=== PATIENT | female | born 1930 | race Caucasian/White ===

== ENCOUNTER 2016-06-13 21:34 | Emergency (ER) | payer MEDICARE, MEDICAID ==
[2016-06-13 21:35] VITALS: BMI 27.4
[2016-06-13 21:56] VITALS: TEMP 98.3
--- NOTE | 2016-06-13 22:09 | EDPRACDOC ---
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 PT STATES THAT HER RIGHT HAND HURT AT FIRST BUT DOES NOT HURT NOW. PT DENIES ANY LOC, NO NECK OR BACK PAIN. Pain Severity: Reports: Mild Injuries/Pain Location: Reports: head, lower extremity Reason for Fall: Reports: lost balance Loss of Consciousness: no loss of consciousness Modifying Factors: improves with: movement Associated Symptoms (Fall): Reports: headache. Denies: abdominal pain, chest pain, confusion, dizziness, lightheadedness, muscle spasms, nausea/vomiting, neck pain, ringing in ears, seizures, shortness of breath, slurred speech, trouble walking, vision changes Allergies/Adverse Reactions: Allergies levofloxacin [From Levaquin] Allergy (Verified 06/13/16 21:56) Unknown Listed on doctor's record (ALYSON Larios) Home Medications: Ambulatory Orders Bisoprolol Fumarate [Zebeta] 2.5 mg PO DAILY 12/31/14 Diclofenac Sodium [Voltaren 1% Topical Gel] 4 gm TOP Q6 PRN 12/31/14 Ergocalciferol (Vitamin D2) [Vitamin D2 (ergocalciferol)] 50,000 units PO SA Fluticasone Propionate [Flonase] 2 spray JESSENIA DAILY 12/31/14 Furosemide [Lasix] 20 mg PO BID 12/31/14 Omeprazole [Prilosec] 20 mg PO DAILY 12/31/14 Phenobarbital [Luminal] 32.4 mg PO BID 12/31/14 Duloxetine [Cymbalta] 60 mg PO HS 04/05/15 Lactobacillus Rhamnosus GG [[facility] [employer]] 1 each PO DAILY Meloxicam 7.5 mg PO BID 08/22/15 Pramipexole [Mirapex] 0.5 mg PO HS 08/22/15 Magnesium Hydroxide [Milk of Magnesia] 30 ml PO BID PRN 09/26/15 Oxycodone (OxyCONTIN) Ext Rel [Oxycontin] 10 mg PO QHS 09/26/15 Sennosides/Docusate Sodium [Senna-S Tablet] 2 tab PO QHS 09/26/15 Aspirin (Enteric Coated) [Halfprin] 81 mg PO DAILY #90 tab 10/02/15 Calcium Carbonate + Vitamin D [Oscal with Vitamin D] 500 mg PO BID #120 tab Acetaminophen [Mapap] 650 mg PO Q6H PRN 04/10/16 CYANOCOBALAMIN (Vitamin B-12) [Vitamin B-12] 1,000 mcg IM .MONTHLY 04/10/16 Hydrocodone Bit/Acetaminophen [[place] 5-325 Tablet] 1 tab PO BID PRN 04/10/16 Losartan Potassium 50 mg PO DAILY 04/10/16 Phenytoin Sodium Extended [Dilantin] 100 mg PO QHS 04/10/16 Phenytoin Sodium [Dilantin] 50 mg PO BID 04/10/16 Tizanidine [Zanaflex] 2 mg PO BID PRN 04/10/16 Denosumab [Prolia] 60 mg SQ .[id number] 06/12/16 ED Past Medical History - History Reviewed Yes Nurses notes reviewed and agree except as marked - Patient Medical History Neurological History: Reports: Seizures (Well controlled on Dilantin and phenobarb.), Dementia Cardiac History: Reports: Hypertension, Hypercholesterolemia GI/ History: Reports: Urinary Tract Infection, Ulcer (Apparently had bleeding ulcer 3 years ago.) Musculoskeletal History: Reports: Arthritis (OA), Osteoarthritis Psychological History: Reports: Anxiety. Denies: Depression, Substance Use Disorder Systemic History: Reports: Anemia, Diabetes Surgical History: Reports: Other (Unknown, unable to determine at this time.) - Family Medical History Reports: Hypertension (MOTHER), Cardiac Disorders (MOTHER). Denies: Diabetes, Cancer, Stroke - Social Medical History Smoking Status: Never smoker Social History: Denies: Substance Use Disorder ETOH: None Substance Abuse: None Lives In: Assisted Living EDM Review of Systems - Review of Systems Constitutional: negative: Chills, Fever Eyes: negative: Blurred Vision, Double Vision Ears: negative: Drainage Throat: negative: Pain Nose: negative: Congestion, Discharge Respiratory: negative: Cough, Shortness of Breath, Wheezing Cardiovascular: negative: Chest Pain, Palpitations Gastrointestinal: negative: Diarrhea, Nausea, Pain, Vomiting Genitourinary: negative: Dysuria, Frequency Neurological: Headache. negative: Dizziness, Numbness, Weakness Musculoskeletal: Knee Integumentary: No Symptoms Reported - Physical Exam Constitutional: Alert (Awake), No apparent distress Oriented to: Time, Person, Place Last recorded Vital Signs: Last Vital Signs Temp 98.3 F 06/13/16 21:49 Pulse 79 06/13/16 21:49 Resp 20 06/13/16 21:49 BP 231/100 H 06/13/16 21:49 Pulse Ox 97 06/13/16 21:49 Oxygen Pulse Oxygen Saturation 97 O2 Device Room Air Oxygen Flow Rate Fraction of Inspired Oxygen ( FIO2) - HEENT Head: Swelling (SMALL HEMATOMA RIGHT OCCIPITAL SCALP) Eye Exam: Normal (PERRL, EOMI, Sclera white) Oropharynx: Normal (Pharynx:Moist without exudate,Gums-no swelling) Tympanic Membrane: Normal ENT EAC: Normal TMJ: Normal Nose: No Symptoms Reported (septum midline) Neck: Normal (FROM, trachea at midline) - Respiratory/Cardiovascular Respiratory: Normal - CTA (BBS clear to auscultation without adventitious sounds ) Cardiovascular: Normal (RRR without murmur, gallop or rub) - GI Auscultation: Normal (NABS) Palpation: Normal (Soft,No rebound or guarding, non distended) Tenderness: Non tender Mcadams's Sign: Negative - Musculoskeletal Back: Normal (Non-Tender) Extremities: Normal (Normal tone, Pulses 2+ No cyanosis or edema, FROM) Musculoskeletal Comment: RIGHT KNEE: NO SWELLING OR DEFORMITY, FROM, MILDLY TTP - Integumentary Skin: Normal, Warm, Dry Lymphatics: Normal (no adenopathy) - Neurologic Memory Impaired: Normal Motor Function: Normal (Normal tone, Pulses 2+ No cyanosis or edema, FROM) Cranial Nerve: Normal (CN II-X11 intact sensation, strength 5/5) Cerebellar: Normal Mood Description: Normal Perception: Normal ED Injury/Fall Exam - Physical Exam Head Injury: swelling, tenderness Extremity Exam: normal range of motion, tenderness Skin: Normal, Warm, Dry - Deepa Coma Score Best Eye Response ([place]): (4) open spontaneously Best Verbal Response ([place]): (5) oriented Best Motor Response ([place]): (6) obeys commands [place] Total: 15 - Differential Diagnosis Fall, Fracture, ICH, Mechanical Fall - Re-evaluation Re-evaluation 1 Re-evaluation Time: 00:38 (BP DOWN) - Diagnostic Imaging RIGHT KNEE Image interpreted by: Radiologist RIGHT KNEE - COMPLETE 4+ VIEW COMPARISON: 04/17/2015 FINDINGS: Components of RIGHT knee prosthesis identified in expected positions. Bones demineralized. No periprosthetic lucency. Regional soft tissue swelling especially anteriorly. Low lying patella versus prior exam raising question of quadriceps tendon injury. No acute fracture, dislocation, or bone destruction. IMPRESSION: Osseous demineralization with RIGHT knee prosthesis. Patella baja raising question of quadriceps tendon injury. Regional soft tissue swelling greatest anteriorly. CT HEAD Image interpreted by: Radiologist CT HEAD WITHOUT CONTRAST TECHNIQUE: Contiguous axial images were obtained from the base of the skull through the vertex without intravenous contrast. COMPARISON: CT of the head performed 04/10/2016 FINDINGS: There is no evidence of acute infarction, mass lesion, or intra- or extra-axial hemorrhage on CT. Prominence of the ventricles and sulci reflects mild to moderate cortical volume loss. Cerebellar atrophy is noted. Scattered periventricular and subcortical white matter change likely reflects small vessel ischemic microangiopathy. Mild chronic ischemic change is noted at the right basal ganglia. The brainstem and fourth ventricle are within normal limits. The cerebral hemispheres demonstrate grossly normal pham-white differentiation. No mass effect or midline shift is seen. 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 The visualized portions of the orbits are within normal limits. The paranasal sinuses and mastoid air cells are well-aerated. No significant soft tissue abnormalities are seen. IMPRESSION: 1. No acute intracranial pathology seen on CT. 2. Mild to moderate cortical volume loss and scattered small vessel ischemic microangiopathy. 3. Mild chronic ischemic change at the right basal ganglia. 4. 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 Decision Time to Discharge: 00:39 - Departure Disposition: Home Condition: Stable Final Diagnosis: POSTERIOR SCALP HEMATOMA, Accidental fall Right knee pain Qualifiers: Chronicity: acute Qualified Code(s): M25.561 - Pain in right knee Instructions: RICE: Routine Care for Injuries Education/Counseling Given To: Patient Education/Counseling Given Regarding: Diagnosis, Treatment, Prognosis, Follow Up Referrals: None,No Provider [Primary Care Provider] - One Week Additional Instructions: USE TYLENOL OR MOTRIN NEEDED FOR PAIN, APPLY COLD COMPRESSES NEEDED FOR PAIN.
--- NOTE | 2016-06-13 22:44 | DIRPT ---
CLINICAL DATA: Pain after falling today in bathroom EXAM: RIGHT KNEE - COMPLETE 4+ VIEW COMPARISON: 04/17/2015 FINDINGS: Components of RIGHT knee prosthesis identified in expected positions. Bones demineralized. No periprosthetic lucency. Regional soft tissue swelling especially anteriorly. Low lying patella versus prior exam raising question of quadriceps tendon injury. No acute fracture, dislocation, or bone destruction. IMPRESSION: Osseous demineralization with RIGHT knee prosthesis. Patella baja raising question of quadriceps tendon injury. Regional soft tissue swelling greatest anteriorly. Electronically Signed By: Siddhartha Bernal M.D. On: 06/13/2016 22:41
--- NOTE | 2016-06-13 23:47 | DIRPT ---
CLINICAL DATA: Status post fall, hitting top right side of head. Initial encounter. EXAM: CT HEAD WITHOUT CONTRAST TECHNIQUE: Contiguous axial images were obtained from the base of the skull through the vertex without intravenous contrast. COMPARISON: CT of the head performed 04/10/2016 FINDINGS: There is no evidence of acute infarction, mass lesion, or intra- or extra-axial hemorrhage on CT. Prominence of the ventricles and sulci reflects mild to moderate cortical volume loss. Cerebellar atrophy is noted. Scattered periventricular and subcortical white matter change likely reflects small vessel ischemic microangiopathy. Mild chronic ischemic change is noted at the right basal ganglia. The brainstem and fourth ventricle are within normal limits. The cerebral hemispheres demonstrate grossly normal pham-white differentiation. No mass effect or midline shift is seen. 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 The visualized portions of the orbits are within normal limits. The paranasal sinuses and mastoid air cells are well-aerated. No significant soft tissue abnormalities are seen. IMPRESSION: 1. No acute intracranial pathology seen on CT. 2. Mild to moderate cortical volume loss and scattered small vessel ischemic microangiopathy. 3. Mild chronic ischemic change at the right basal ganglia. 4. 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 Electronically Signed By: Espinoza Hutchinson M.D. On: 06/13/2016 23:45
[2016-06-14] MEDS ORDERED: ACETAMINOPHEN 325 MG/TAB TABLET PO ONE (00:41)
[2016-06-14 00:49] VITALS: BP 185/92; PULSE 84
== END 2016-06-14 01:20 | disposition short-term general hospital (02) ==
LOC: ED 21:34
DX: M25.561 Pain in right knee (principal); S00.03XA Contusion of scalp, initial encounter; X58.XXXA Exposure to other specified factors, initial encounter
CPT/HCPCS: 70450; 73564; 99283; A9270; J3490